=== PATIENT | female | born 1990 | race African-American/Black ===

== ENCOUNTER 2020-04-19 03:14 | Emergency (ER) | payer MEDICAID, OTHER ==
[~2020-04-19] VITALS: Ht 167.6 cm; Wt 110.6 kg
[2020-04-19] MEDS ORDERED: AZITHROMYCIN 500 MG TABLET PO SCH (04:00)
[2020-04-19] MEDS ORDERED: LIDOCAINE HCL 1% 20ML VIAL (Pyxis) INJ INFIL SCH (04:00)
[2020-04-19] MEDS ORDERED: CEFTRIAXONE SODIUM 500 MG/VIAL IM SCH (04:00)
[2020-04-19 04:26] VITALS: BP 183/118
[2020-04-19] MEDS ORDERED: AMLODIPINE 5MG TABLET PO ONE (04:30)
[2020-04-19] MEDS ORDERED: ENALAPRIL 2.5MG TABLET PO ONE (04:30)
== END 2020-04-19 05:27 | disposition home or self-care (01) ==
LOC: ER 03:14
DX: N34.2 Other urethritis (principal); Z20.2 Contact with and (suspected) exposure to infections with a predominantly sexual mode of transmission; I10 Essential (primary) hypertension
CPT/HCPCS: 96372; 99284; J0696; J3490